=== PATIENT | female | born 1995 | race Two or more races ===

== ENCOUNTER 2018-11-23 21:04 | Emergency (ER) | payer SELFPAY ==
[~2018-11-23] VITALS: Ht 175.3 cm; Wt 90.7 kg
[~2018-11-23 21:04] MED LIST: geodon; intuniv; lexapro; rozerem
[2018-11-23] MEDS ORDERED: ACETAMINOPHEN 500 MG TABLET PO ONE (21:45)
[2018-11-23] MEDS ORDERED: AMOXICILLIN/K CLAV 875/125MG TABLET. PO ONE (21:45)
--- NOTE | 2018-11-23 23:28 | RAD ---
CLINICAL HISTORY: Pain, COMPARISON: None available. TECHNIQUE: Endovaginal sonography was performed. FINDINGS: An intrauterine gestational sac is present. An embryo is identified .Cardiac activity is visualized and documented at a rate of 116 beats per minute. There is a small subchorionic collection.. Based on a crown rump length averaging 0.58 cm, the estimated gestational age is 6 weeks, 3 days. Estimated date of delivery is 07/16/2019. The right ovary measures 3.3 cm x 2.2 cm x 2.1 cm. The left ovary measures 2.7 cm x 1.8 cm x 1.5 cm. Flow seen to both ovaries. There is no pelvic free fluid. IMPRESSION: 1. Single live intrauterine gestation with mean sonographic age of 6 weeks, 3 days. The estimated date of delivery is 07/16/2019. 2. Small subchorionic collection is seen. Electronically signed by: Dat Hernandez MD (11/23/2018 11:25 PM) [facility]
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
[2018-11-23] MEDS ORDERED: AMOX1TAB61 PO (23:50)
[2018-11-24] MEDS ORDERED: ONDANSETRON ODT 4 MG TAB.RAPDIS. ONE (00:02)
[2018-11-24 00:05] VITALS: BP 129/63
[2018-11-24] MEDS ORDERED: ONDANSETRON ODT 4 MG TAB.RAPDIS. PO ONE (00:15)
== END 2018-11-24 00:20 | disposition home or self-care (01) ==
LOC: ER 21:04
DX: O9A.211 Injury, poisoning and certain other consequences of external causes complicating pregnancy, first trimester (principal); S63.611A Unspecified sprain of left index finger, initial encounter; S00.33XA Contusion of nose, initial encounter; O46.8X1 Other antepartum hemorrhage, first trimester; O99.511 Diseases of the respiratory system complicating pregnancy, first trimester; J45.909 Unspecified asthma, uncomplicated; O99.341 Other mental disorders complicating pregnancy, first trimester; F41.8 Other specified anxiety disorders; Z3A.01 Less than 8 weeks gestation of pregnancy; Y08.89XA Assault by other specified means, initial encounter; Y93.89 Activity, other specified; Y92.89 Other specified places as the place of occurrence of the external cause; Y99.8 Other external cause status
CPT/HCPCS: 36415; 76801; 76817; 84702; 86900; 86901; 99285-25